=== PATIENT | male | born 1975 | race Caucasian/White ===

== ENCOUNTER 2020-09-25 19:09 | Emergency (ER) | payer OTHER, SELFPAY ==
[2020-09-25 19:30] VITALS: BP 127/77; PULSE 70; RESP 18; TEMP 36.2; O2SAT 68; BMI 22.4
[2020-09-25 19:48] VITALS: O2SAT 100
--- NOTE | 2020-09-25 20:13 | W.ED.PSYCH ---
HPI - Psych General: Chief Complaint: Psychiatric Symptoms Stated Complaint: psych eval,detox Time Seen by Provider: 09/25/20 19:39 History of Present Illness: HPI Narrative: The patient is a 45-year-old male who comes to the ER to medically detox from Suboxone. He says his last pill was taken yesterday. He says he called someone who told him to get seen by a psychiatrist and seen at the hospital to get admitted at the hospital for medical detox. Triage nurse explained we do not medically detox here. When I discussed with him he admitted that he felt suicidal today. He says he does not feel suicidal right now but he has in the past. He has no plans to hurt himself. He does not really wish to hurt himself he just wants to detox. He denies any medical complaints in the ER today. Denies alcohol and drugs as well. Associated symptoms: Deny auditory hallucinations, visual hallucinations, depression, homicidal ideation or suicidal ideation Review of Systems General: Reports: 10 or more systems reviewed and unremarkable except in HPI and below Const: Denies: fatigue Eyes: Denies: change in vision, blurry vision or eye redness ENMT: Denies: throat pain, swelling of lips/tongue, ear or mastoid pain or nasal congestion Card: Denies: chest pain, palpitations, irregular heart rhythm, edema, dyspnea on exertion or orthopnea Resp: Denies: dyspnea, productive cough or non-productive cough GI: Denies: abdominal pain, diarrhea or GI cramping : Denies: flank pain, urinary frequency or urinary urgency Musc: Denies: neck pain, back pain, extremity pain, joint pain, joint redness, limited range of motion or muscle weakness Skin/Breast: Denies: rash, pruritus, erythema, skin pain or skin tenderness Neuro: Denies: headache(s), numbness in extremities, weakness in extremities, sensory changes, difficulty walking, dizziness, confusion or Slurred speech present Psych: Denies: anxiety, depression, visual hallucinations, auditory hallucinations, suicidal ideation or homicidal ideation Endo: Denies: polyuria All/Imm: Denies: urticaria, throat swelling or tongue swelling Physical Exam Const: COMMON NORMALS: no acute distress, average body habitus, patient oriented x3, no limitations, healthy appearing, alert and well nourished GENERAL APPEARANCE: cooperative, comfortable, well kempt and well developed ORIENTATION/CONSCIOUSNESS: Yes awake, Yes oriented to person, Yes oriented to place and Yes oriented to time HENMT: COMMON NORMALS: normocephalic, external ears normal and Normal external nose present HEAD & SCALP: normal to inspection and normocephalic NOSE: Normal external nose present EXTERNAL EAR: Yes external ears normal MOUTH: Normal oral and palatal mucosa present THROAT: posterior oropharynx normal Eye: COMMON NORMALS: Equal, round and reactive pupils present and EOMs intact bilaterally GENERAL EYE: appearance normal, both eyes and all related structures PUPIL: Yes Equal, round and reactive pupils present Neck/C-Spine: COMMON NORMALS: full ROM, no lymphadenopathy, no meningeal signs and no JVD GENERAL: Yes normal visual inspection Lymph: LYMPHATIC: no lymphadenopathy noted Chest: COMMONS NORMALS: normal inspection of the chest and normal palpation of entire chest wall Resp: COMMON NORMALS: normal respiratory effort, No retractions, No use of accessory muscles, clear to auscultation bilaterally and percussion normal EFFORT & INSPECTION: Yes able to speak in complete sentences AUSCULTATION: clear to auscultation bilaterally PERCUSSION: percussion normal Cardio: COMMON NORMALS: no JVD, regular rate, regular rhythm, S1 normal heart sound present, S2 normal heart sound present and Peripheral pulses 2+ throughout RATE: regular rate RHYTHM: regular rhythm HEART SOUNDS: S1 normal heart sound present and S2 normal heart sound present PERIPHERAL PULSES: Peripheral pulses 2+ throughout GI: COMMON NORMALS: Normal to inspection, nondistended, normoactive bowel sounds present, Soft to palpation, non-tender and no masses INSPECTION: Yes normal to inspection PALPATION: Yes Soft to palpation : COMMON NORMALS: Yes no CVA tenderness BLADDER/KIDNEY EXAM: Yes no CVA tenderness Back/Pelvis: COMMON NORMALS: no CVA tenderness, thoracic and lumbar spine normal to inspection, no thoracic nor lumbar tenderness and thoraco-lumbar ROM normal Extremity: COMMON NORMALS: normal to inspection, full ROM, capillary refill normal, no joint enlargement and no pedal edema GENERAL: Yes normal exam except as noted Neuro: COMMON NORMALS: patient oriented x3, CN's II-XII intact bilaterally, moves all extremities, no focal motor deficits, no sensory deficits noted and gait normal SENSORIUM/ORIENTATION: Yes alert, Yes oriented to person, Yes oriented to place and Yes oriented to time MENINGEAL SIGNS: Yes no meningeal signs Psych: COMMON NORMALS: mental status grossly normal, Normal thought process present, cooperative, normal affect and speech normal APPEARANCE: Yes well kempt ATTITUDE: Yes calm SPEECH: Yes normal speech THOUGHT PROCESS: Normal thought process present THOUGHT CONTENT: No Suicidality present and No Homicidality present Skin: COMMON NORMALS: no rashes or lesions noted GENERAL SKIN EXAM: no rashes or lesions noted Course Vital Signs: Vital signs: Vital Signs Temperature 97.1 F L 09/25/20 19:30 Pulse Rate 70 09/25/20 19:30 Respiratory Rate 18 09/25/20 19:30 Blood Pressure 127/77 09/25/20 19:30 Pulse Oximetry 100 09/25/20 19:48 MDM - Psych MDM Narrative: Medical decision making narrative: The patient was not admitting to suicidal ideations at present but he did admit to feeling them earlier today. It is clear he just wants to detox from the Suboxone. I had him seen by Dr. Reddy who cleared him from a psychiatric standpoint. He asked to leave and he was sent home AGAINST MEDICAL ADVICE. Filled out a no harm to self contract. ER at anytime with worsening symptoms Discharge Plan Discharge Patient Disposition: Left Against Medical Advice Clinical Impression: Desire for detoxification Condition: Stable Prescriptions: No Action azithromycin 250 mg tablet See Rx Instructions .ROUTE .COMPLEX RF: 0 buprenorphine HCl 8 mg tablet, sublingual 8 mg SUBLINGUAL TID RF: 0 Coding Level of Care Code ED Clearance Representative for Moni Porras
== END 2020-09-25 20:07 | disposition left against medical advice (07) ==
PROVIDERS: Emergency Provider Family Medicine
DX: R45.851 Suicidal ideations (principal); Z53.21 Procedure and treatment not carried out due to patient leaving prior to being seen by health care provider
CPT/HCPCS: 99281